=== PATIENT | female | born 1995 | race Caucasian/White ===

== ENCOUNTER 2017-08-25 12:48 | Emergency (ER) | payer BC ==
--- NOTE | 2017-08-25 14:10 | RAD ---
HISTORY: PICC line placement COMPARISONS: None VIEWS: 4: Frontal dual-energy and lateral views of the chest. FINDINGS: CARDIOMEDIASTINAL SILHOUETTE: The cardiomediastinal silhouette is normal. ROBERT: The robert are normal. PLEURA: The costophrenic angles are sharp. No pleural abnormalities are noted. LUNG PARENCHYMA: The lungs are clear. ABDOMEN: The upper abdomen is clear. There is no subphrenic gas. BONES AND SOFT TISSUES: No bone or soft tissue abnormalities are noted. OTHER: A left-sided PICC line is noted with the tip overlying the cavoatrial junction. IMPRESSION: NO ACTIVE CARDIOPULMONARY DISEASE.
[2017-08-25] MEDS ORDERED: Ibuprofen TAB* 600 MG PO ONE (16:46)
[2017-08-25] MEDS ORDERED: Ondansetron ODT TAB* 4 MG ONE (17:24)
[2017-08-25] MEDS ORDERED: Ondansetron ODT TAB* 4 MG PO ONE (17:24)
[2017-08-25 17:28] VITALS: BP 101/75
--- NOTE | 2017-08-27 18:26 | ED ---
Ibteh Tran Alfonso, scribed for Gilmer Villanueva MD on 08/25/17 at 1638 . Complex/Multi-Sys Presentation - HPI Summary HPI Summary: This patient is a 22 year old F presenting to [facility] with a chief complaint of pressured upper chest discomfort since two days ago. Three days ago she had a PICC line place in [place]. The patient rates the pain 6/10 in severity. Symptoms aggravated by leaning forward, deep breaths and infusions. Symptoms alleviated by nothing. Patient reports palpitations, discomfort with swallowing , and upper back pain. Patient denies fever, and SOB. - History Of Current Complaint Chief Complaint: EDGeneral Time Seen by Provider: 08/25/17 16:28 Hx Obtained From: Patient Onset/Duration: Sudden Onset, Lasting Days - 2, Still Present Timing: Constant Aggravating Factor(s): leaning forward, deep breaths and infusions Alleviating Factor(s): nothing Associated Signs And Symptoms: Positive: Other - Patient reports chest discomfort, palpitations, discomfort with swallowing, and upper back pain. Patient denies fever, and SOB. - Allergies/Home Medications Allergies/Adverse Reactions: Allergies Allergy/AdvReac Type Severity Reaction Status Date / Time No Known Allergies Allergy Verified 08/25/17 13:29 PMH/Surg Hx/FS Hx/Imm Hx Opthamlomology History: Denies: Hx Legally Blind EENT History: Denies: Hx Deafness Neurological History: Reports: Other Neuro Impairments/Disorders - Lyme Infectious Disease History: No Infectious Disease History: Denies: Traveled Outside the [place] in Last 30 Days - Family History Known Family History: Positive: Cardiac Disease - Father [place] 45 - Social History Alcohol Use: Occasionally Substance Use Type: Reports: None Smoking Status (MU): Never Smoked Tobacco Review of Systems Negative: Fever Positive: Other - discomfort with swallowing Positive: Palpitations Negative: Shortness Of Breath Positive: Other - chest discomfort, and upper back pain All Other Systems Reviewed And Are Negative: Yes Physical Exam - Summary Physical Exam Summary: VITAL SIGNS: Reviewed. GENERAL: Patient is a well-developed and nourished female who is lying comfortable in the stretcher. Patient is not in any acute respiratory distress. HEAD AND FACE: No signs of trauma. No ecchymosis, hematomas or skull depressions. No sinus tenderness. EYES: PERRLA, EOMI x 2, No injected conjunctiva, no nystagmus. EARS: Hearing grossly intact. Ear canals and tympanic membranes are within normal limits. MOUTH: Oropharynx within normal limits. NECK: Supple, trachea is midline, no adenopathy, no JVD, no carotid bruit, no c- spine tenderness, neck with full ROM. CHEST: Symmetric, no tenderness at palpation LUNGS: Clear to auscultation bilaterally. No wheezing or crackles. CVS: Regular rate and rhythm, S1 and S2 present, no murmurs or gallops appreciated. ABDOMEN: Soft, non-tender. No signs of distention. No rebound no guarding, and no masses palpated. Bowel sounds are normal. EXTREMITIES: FROM in all major joints, no edema, no cyanosis or clubbing. NEURO: Alert and oriented x 3. No acute neurological deficits. Speech is normal and follows commands. SKIN: Dry and warm Triage Information Reviewed: Yes Vital Signs On Initial Exam: Initial Vitals Temp Pulse Resp BP Pulse Ox 97.1 F 99 16 127/92 100 08/25/17 13:24 08/25/17 13:24 08/25/17 13:24 08/25/17 13:24 08/25/17 13:24 Vital Signs Reviewed: Yes - Israel Coma Scale Coma Scale Total: 15 Diagnostics - Vital Signs Vital Signs Temp Pulse Resp BP Pulse Ox 08/25/17 16:18 85 100 08/25/17 16:16 112/78 08/25/17 15:21 97.4 F 95 16 120/82 100 08/25/17 13:24 97.1 F 99 16 127/92 100 - Laboratory Lab Statement: Any lab studies that have been ordered have been reviewed, and results considered in the medical decision making process. - Radiology CXR Radiology Interpretation Completed By: Radiologist - NO ACTIVE CARDIOPULMONARY DISEASE. ED physician has reviewed this radiology report and agrees. Complex Multi-Symp Course/Dx Assessment/Plan: This patient is a 22 year old F presenting to [facility] with a chief complaint of pressured upper chest discomfort since two days ago. Three days ago she had a PICC line place in [place]. The patient rates the pain 6/ 10 in severity. Symptoms aggravated by leaning forward, deep breaths and infusions. Symptoms alleviated by nothing. Patient reports palpitations, discomfort with swallowing, and upper back pain. Patient denies fever, and SOB. CXR reveals NO ACTIVE CARDIOPULMONARY DISEASE. ED physician has reviewed this radiology report and agrees. I further reviewed the imaging myself and saw the PICC line is well placed. Her pain is above the PICC line, therefore I believe the pain is musculoskeletal. In the ED course the patient was given ibuprofen for the pain. She will be discharged to home with PCP follow up. The patient is agreeable with this plan. The patient is hemodynamically stable and alert and oriented x3. - Diagnoses Provider Diagnoses: Musculoskeletal pain Discharge - Discharge Plan Condition: Stable Disposition: HOME Patient Education Materials: Musculoskeletal Pain (ED) Referrals: [facility] [place] PHYSICIAN REFERRAL [Outside] - 3 Days Additional Instructions: RETURN TO THE EMERGENCY DEPARTMENT FOR CHANGING OR WORSENING SYMPTOMS. The documentation as recorded by the Ibeth lane Alfonso accurately reflects the service I personally performed and the decisions made by me, Gilmer Villanueva MD.
== END 2017-08-25 17:38 | disposition home or self-care (01) ==
LOC: ED 12:48
DX: R07.89 Other chest pain (principal); Z45.2 Encounter for adjustment and management of vascular access device; R00.2 Palpitations; R13.10 Dysphagia, unspecified; M54.6 Pain in thoracic spine
CPT/HCPCS: 71020; 99283; A9270-GY

== ENCOUNTER → 2017-08-26 16:56 | Emergency (ER) | payer BC ==
[2017-08-26 17:11] VITALS: BP 116/91
--- NOTE | 2017-08-26 23:01 | ED ---
Skin Complaint - HPI Summary HPI Summary: Patient presents to the ED with CC of IV PICC dressing concern. She states she was here yesterday and the dressing was changed because of bothersome dressing. Today, she returns d/t a scant amount of blood near the line under the dressing. She was concerned as she has never seen this before. Denies pain today. Notes to some itching. 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 She denies symptoms today, but is concerned for the dressing. Denies erythema, color or temperature changes to the area. - History of Current Complaint Chief Complaint: EDGeneral Time Seen by Provider: 08/26/17 18:11 Stated Complaint: DRESSING CHANGE Hx Obtained From: Patient Onset/Duration: Started Hours Ago Skin Exposure Onset/Duration: Hours Ago Timing: Constant Onset Severity: Mild Current Severity: None Pain Intensity: 0 Pain Scale Used: 0-10 Numeric Skin Location: Arm - left inner arm Character: Pruritus Aggravating Symptom(s): Nothing Alleviating Symptom(s): Nothing Associated Signs & Symptoms: Negative - Allergy/Home Medications Allergies/Adverse Reactions: Allergies Allergy/AdvReac Type Severity Reaction Status Date / Time No Known Allergies Allergy Verified 08/25/17 13:29 PMH/Surg Hx/FS Hx/Imm Hx Previously Healthy: Yes - Immunization History Hx Pertussis Vaccination: No Immunizations Up to Date: Unable to Obtain/Confirm Infectious Disease History: No Infectious Disease History: Denies: Traveled Outside the [place] in Last 30 Days - Social History Occupation: Unemployed, Student Lives: With Family Alcohol Use: Occasionally Hx Substance Use: No Substance Use Type: Reports: None Hx Tobacco Use: No Smoking Status (MU): Never Smoked Tobacco Review of Systems Constitutional: Negative Negative: Fever, Chills, Fatigue Eyes: Negative Cardiovascular: Negative Respiratory: Negative Negative: Shortness Of Breath, Cough Negative: Abdominal Pain, Vomiting Negative: no symptoms reported, see HPI Musculoskeletal: Negative Positive: Other - PICC dressing in place with port clean and dry. Negative: Rash, Bruising Neurological: Negative Psychological: Normal All Other Systems Reviewed And Are Negative: Yes Physical Exam Triage Information Reviewed: Yes Vital Signs On Initial Exam: Initial Vitals Temp Pulse Resp BP Pulse Ox 98.6 F 91 16 116/91 100 08/26/17 17:09 08/26/17 17:09 08/26/17 17:09 08/26/17 17:09 08/26/17 17:09 Vital Signs Reviewed: Yes Appearance: Positive: Well-Appearing, Well-Nourished Skin: Positive: Warm, Skin Color Reflects Adequate Perfusion, Other - PICC dressing in place with port clean and dry Eyes: Positive: Normal, ANTOINETTE Neck: Positive: Supple, No Lymphadenopathy Respiratory/Lung Sounds: Positive: Clear to Auscultation, Breath Sounds Present Cardiovascular: Positive: Normal, RRR, Pulses are Symmetrical in both Upper and Lower Extremities Musculoskeletal: Positive: Normal, Strength/ROM Intact Neurological: Positive: Alert, Oriented to Person Place, Time, Speech Normal Psychiatric: Positive: Normal Diagnostics - Vital Signs Vital Signs Temp Pulse Resp BP Pulse Ox 08/26/17 17:09 98.6 F 91 16 116/91 100 - Laboratory Lab Statement: Any lab studies that have been ordered have been reviewed, and results considered in the medical decision making process. Course/Dx - Course Course Of Treatment: Patient evaluated for PICC dressing concern. On exam, PICC is in place with port clean and dry. Discussed would like to keep the dressing on as there is no evidence for concern or displacement. Discussed higher risk of infection with reapplying new dressings and encouraged her to await until next week with the VNS to visit. She is OK with this plan and understands she will return if any symptoms worsen or the PICC becomes displaced and/or the dressing is more saturated with blood. - Diagnoses Provider Diagnoses: Bleeding from PICC line Discharge - Discharge Plan Condition: Stable Disposition: HOME Referrals: Non Staff,Doctor [Primary Care Provider] - Additional Instructions: Continue with your normal follow ups for dressing changes If the dressing becomes saturated or becomes more bothersome - return to the ED
== END | disposition home or self-care (01) ==
LOC: ED 16:56
DX: Z45.2 Encounter for adjustment and management of vascular access device (principal)
CPT/HCPCS: 99281

== ENCOUNTER 2017-09-03 22:10 | Emergency (ER) | payer BC ==
[2017-09-03 22:18] VITALS: BP 124/88
--- NOTE | 2017-09-04 00:16 | ED ---
Briseyda Tran Edward, scribed for Trent Bryant on 09/03/17 at 2359 . ED Suture/Wound Check - HPI Summary HPI Summary: 22 y/o female presents to the ED c/o clear drainage from insertion site of PICC line @ L upper arm tonight. Pt also has redness to skin around arm at PICC line site that has subsided. Pt denies pain in the upper arm. Pt states when she puts on deodorant her armpit "sometimes feels weird". Denies fever. The symptoms are not aggravated or alleviated with anything. Pt has been receiving Rocephin infusions at home via PICC. PICC line has been in for almost 2 weeks, is being treated for Lyme, Bartonello and various others. Pt states this is her 3rd PICC line and she has never had these symptoms before. - History Of Current Complaint Chief Complaint: EDGeneral Stated Complaint: POSS PICC LINE INFECTION Hx Obtained From: Patient Onset/Duration: Lasting Hours Pain Intensity: 1 - Allergies/Home Medications Allergies/Adverse Reactions: Allergies Allergy/AdvReac Type Severity Reaction Status Date / Time No Known Allergies Allergy Verified 09/03/17 22:19 PMH/Surg Hx/FS Hx/Imm Hx Previously Healthy: No Endocrine/Hematology History: Reports: Other Endocrine/Hematological Disorders - Lyme's disease, Bartonello's Cardiovascular History: Denies: Hx Myocardial Infarction Infectious Disease History: No Infectious Disease History: Denies: Traveled Outside the [place] in Last 30 Days - Social History Alcohol Use: Occasionally Hx Substance Use: No Substance Use Type: Reports: None Hx Tobacco Use: No Smoking Status (MU): Never Smoked Tobacco Review of Systems Constitutional: Negative Eyes: Negative ENT: Negative Cardiovascular: Negative Respiratory: Negative Gastrointestinal: Negative Genitourinary: Negative Musculoskeletal: Negative Skin: Other - Drainage and erythema @ PICC line site Neurological: Negative Psychological: Normal All Other Systems Reviewed And Are Negative: Yes Physical Exam Triage Information Reviewed: Yes Vital Signs On Initial Exam: Initial Vitals Temp Pulse Resp BP Pulse Ox 98.4 F 79 14 124/88 100 09/03/17 22:15 09/03/17 22:15 09/03/17 22:15 09/03/17 22:15 09/03/17 22:15 Vital Signs Reviewed: Yes Appearance: Positive: Well-Appearing, No Pain Distress Skin: Positive: Warm, Skin Color Reflects Adequate Perfusion, Dry, Other - Pt has a PICC line. No erythema around PICC line site. Mild serosanguinous dry discharge. No tenderness over the PICC line site. No axillary lymph nodes. No red streaks. Head/Face: Positive: Normal Head/Face Inspection Eyes: Positive: EOMI, ANTOINETTE ENT: Positive: Normal ENT inspection Neck: Positive: Supple, Nontender Respiratory/Lung Sounds: Positive: Clear to Auscultation, Breath Sounds Present Cardiovascular: Positive: RRR, Pulses are Symmetrical in both Upper and Lower Extremities Abdomen Description: Positive: Nontender, Soft Bowel Sounds: Positive: Present Musculoskeletal: Positive: Normal, Strength/ROM Intact Neurological: Positive: Normal, Sensory/Motor Intact, Alert, Oriented to Person Place, Time Diagnostics - Vital Signs Vital Signs Temp Pulse Resp BP Pulse Ox 09/03/17 22:15 98.4 F 79 14 124/88 100 - Laboratory Lab Statement: Any lab studies that have been ordered have been reviewed, and results considered in the medical decision making process. Course/Dx - Course Assessment/Plan: 22 y/o female presents to the ED c/o clear drainage from insertion site of PICC line @ L upper arm tonight. Pt also has redness to skin around arm at PICC line site that has subsided. Pt denies pain in the upper arm. Pt states when she puts on deodorant her armpit "sometimes feels weird". Denies fever. The symptoms are not aggravated or alleviated with anything. Pt has been receiving Rocephin infusions at home via PICC. PICC line has been in for almost 2 weeks, is being treated for Lyme, Bartonello and various others. Pt states this is her 3rd PICC line and she has never had these symptoms before. Pt c/o drainage and erythema @ PICC line site. PICC line site is not infected. Pt will be d/c home with f/u with PCP. Drainage will be sent for cultures, pt will be called with culture results. Pt is advised to continue abx. - Differential Diagnoses Differential Diagnoses: Abscess, Cellulitis, Healing Wound - Clinical Impression Provider Diagnoses: Visit for wound check, Status post PICC central line placement Discharge - Discharge Plan Condition: Stable Disposition: HOME Patient Education Materials: Peripherally Inserted Central Catheters and Midline Catheters (ED) Referrals: Non Staff,Doctor [Primary Care Provider] - 3 Days (PLEASE F/U IN 2-3 DAYS) Additional Instructions: CONTINUE ABX. WE WILL CALL REGARDING WOUND DRAINAGE CULTURES The documentation as recorded by the Briseyda lane Edward accurately reflects the service I personally performed and the decisions made by Annette jaramillo Emmanuel.
== END 2017-09-04 00:16 | disposition home or self-care (01) ==
LOC: ED 22:10
DX: Z45.2 Encounter for adjustment and management of vascular access device (principal); Z48.00 Encounter for change or removal of nonsurgical wound dressing; Z43.8 Encounter for attention to other artificial openings
CPT/HCPCS: 87070; 87077; 87205; 99281